=== PATIENT | male | born 1970 | race American Indian/Alaskan Native ===

== ENCOUNTER 2017-01-13 08:41 | Emergency (ER) | payer OTHER ==
[2017-01-13 09:29] LABS: Basophils % (Auto) 0.4 % (0.0-1.8); Eosinophils % (Auto) 4.4 % (0.0-4.3); Hematocrit 44.1 % (35.5-45.6); Hemoglobin 13.8 gm/dl (11.8-15.2); Mean Corpuscular HGB Conc 31 % (32-34); Mean Corpuscular Volume 79 fl (84-94); Platelet Count 163 K/mm3 (140-440); Red Blood Count 5.62 M/mm3 (3.65-5.03); Red Cell Distribution Width 15.9 % (13.2-15.2); White Blood Count 5.5 K/mm3 (4.5-11.0)
[2017-01-13 09:30] LABS: Mean Corpuscular Hemoglobin 25 pg (28-32)
[2017-01-13 09:37] LABS: Anion Gap 19 mmol/L; BUN/Creatinine Ratio 14.54; Blood Urea Nitrogen 16 mg/dL (9-20); Calcium 9.3 mg/dL (8.4-10.2); Carbon Dioxide 22 mmol/L (22-30); Chloride 105.8 mmol/L (98-107); Glucose 124 mg/dL (75-100); Potassium 4.3 mmol/L (3.6-5.0); Sodium 142 mmol/L (137-145)
[2017-01-13] MEDS ORDERED: TORADOL IV ONE (15:25)
[2017-01-13] MEDS ORDERED: TYLENOL PO ONE (15:25)
[2017-01-13] MEDS ORDERED: VALIUM IV ONE (15:25)
--- NOTE | 2017-01-13 15:26 | Emergency Department Report ---
ED General Adult HPI - General Chief complaint: Chest Pain Stated complaint: CHEST PAIN/BOTH LEGS NUMB/PAIN Time Seen by Provider: 01/13/17 15:14 Source: patient, RN notes reviewed Mode of arrival: Ambulatory Limitations: No Limitations - History of Present Illness Initial comments: This is a 46-year-old male. He is previously unknown to me. He does not have a primary care doctor. He has no chronic medical conditions. The patient works as a cook and a painter bottom. The patient presents to the emergency department with 2 complaints. The patient's first complaint is chest pain. The chest pain is left-sided and described as tightness. It does not radiate to the back, arms and neck. To me he denies shortness of breath, nausea, vomiting, diaphoresis. There is no leg pain. There is no leg swelling. No recent trips greater than 4 hours. No recent hospital admissions. The patient does describe repetitive range of motion with his hands secondary to painting. The patient says complaint is back pain. The back pain is paralumbar. It radiates down the right lower extremity to the posterior knee. The pain is achy and sharp. There is no bladder or bowel retention or incontinence. There is no shortness of breath. There is no saddle anesthesia. Patient denies fever greater than 100.4. He denies irritative and obstructive urinary symptoms. He denies IV drug use. There is no abdominal pain. -: Gradual Location: chest, back, right, lower extremity Quality: aching Consistency: intermittent Improves with: rest Worsens with: movement Associated Symptoms: chest pain. denies: confusion, headaches, loss of appetite , malaise, nausea/vomiting, shortness of breath, syncope, weakness - Related Data Home Medications Medication Instructions Recorded Confirmed Last Taken Acetaminophen [Tylenol] 650 mg PO Q6HR PRN 01/13/17 01/13/17 01/12/17 Ibuprofen [Motrin] 800 mg PO Q8HR PRN 01/13/17 01/13/17 01/13/17 Previous Rx's Medication Instructions Recorded Last Taken Type Ketorolac [Toradol] 10 mg PO Q6H PRN #20 tablet 01/13/17 Unknown Rx Methocarbamol [Robaxin TAB] 750 mg PO TID PRN #30 tab 01/13/17 Unknown Rx Allergies Allergy/AdvReac Type Severity Reaction Status Date / Time No Known Allergies Allergy Unverified 01/13/17 08:52 ED Review of Systems ROS: Stated complaint: CHEST PAIN/BOTH LEGS NUMB/PAIN Other details as noted in HPI Constitutional: denies: fever Eyes: denies: vision change ENT: denies: epistaxis Cardiovascular: chest pain Gastrointestinal: denies: abdominal pain, nausea, diarrhea Genitourinary: denies: urgency, dysuria, testicular pain Musculoskeletal: back pain Skin: denies: lesions Neurological: paresthesias. denies: headache, weakness, abnormal gait Psychiatric: denies: anxiety ED Past Medical Hx - Past Medical History Previous Medical History?: No - Surgical History Past Surgical History?: No - Social History Smoking Status: Current Every Day Smoker Substance Use Type: Alcohol - Medications Home Medications: Home Medications Medication Instructions Recorded Confirmed Last Taken Type Acetaminophen [Tylenol] 650 mg PO Q6HR PRN 01/13/17 01/13/17 01/12/17 History Ibuprofen [Motrin] 800 mg PO Q8HR PRN 01/13/17 01/13/17 01/13/17 History Ketorolac [Toradol] 10 mg PO Q6H PRN #20 tablet 01/13/17 Unknown Rx Methocarbamol [Robaxin TAB] 750 mg PO TID PRN #30 tab 01/13/17 Unknown Rx ED Physical Exam - General Limitations: No Limitations General appearance: alert, in no apparent distress - Head Head exam: Present: atraumatic, normocephalic - Eye Eye exam: Present: normal appearance, EOMI. Absent: nystagmus - ENT ENT exam: Present: normal exam, normal orophraynx, mucous membranes moist, normal external ear exam - Neck Neck exam: Present: normal inspection, full ROM. Absent: tenderness, meningismus - Respiratory Respiratory exam: Present: normal lung sounds bilaterally, chest wall tenderness. Absent: respiratory distress, wheezes, rales, rhonchi, stridor, accessory muscle use, decreased breath sounds, prolonged expiratory - Cardiovascular Cardiovascular Exam: Present: regular rate, normal rhythm, normal heart sounds. Absent: bradycardia, tachycardia, irregular rhythm, systolic murmur, diastolic murmur, rubs, gallop - GI/Abdominal GI/Abdominal exam: Present: soft, normal bowel sounds. Absent: distended, tenderness, guarding, rebound, rigid, pulsatile mass - Rectal Rectal exam: Present: deferred - Extremities Exam Extremities exam: Present: normal inspection, full ROM, normal capillary refill. Absent: tenderness, pedal edema, joint swelling, calf tenderness - Back Exam Back exam: Present: normal inspection, full ROM, tenderness, CVA tenderness (R) , paraspinal tenderness. Absent: vertebral tenderness - Neurological Exam Neurological exam: Present: alert, oriented X3, normal gait, other (Extraocular movements intact. Tongue midline. No facial droop. Facial sensation intact to light touch in the V1, V2, V3 distribution bilaterally. 5 and 5 strength in 4 extremities.. Sensation is intact to light touch in 4 extremities.). Absent : motor sensory deficit (normal gait. Normal tandem gait. Sensation intact to pinprick, proprioception and 4 extremities, downgoing plantar reflexes in the bilateral lower extremity's.) - Psychiatric Psychiatric exam: Present: normal affect, normal mood - Skin Skin exam: Present: warm, dry, intact, normal color. Absent: rash ED Course Vital Signs 01/13/17 01/13/17 01/13/17 08:53 14:52 14:57 Temperature 97.7 F 97.8 F Pulse Rate 90 Respiratory 20 15 Rate Blood Pressure 143/98 Blood Pressure [Left] O2 Sat by Pulse 100 99 Oximetry 01/13/17 01/13/17 01/13/17 15:00 15:10 15:26 Temperature Pulse Rate 80 75 77 Respiratory 14 16 Rate Blood Pressure 144/88 144/88 144/88 Blood Pressure [Left] O2 Sat by Pulse 98 100 Oximetry 01/13/17 01/13/17 01/13/17 15:30 15:40 15:50 Temperature Pulse Rate 78 72 79 Respiratory 15 13 20 Rate Blood Pressure 144/88 144/88 144/88 Blood Pressure [Left] O2 Sat by Pulse 99 99 100 Oximetry 01/13/17 16:00 Temperature 97.9 F Pulse Rate 84 Respiratory 16 Rate Blood Pressure 144/88 Blood Pressure 143/95 [Left] O2 Sat by Pulse 100 Oximetry - Reevaluation(s) Reevaluation #1: 01/13/17 16:05 Differential diagnosis: Lumbar radiculopathy, costochondritis, pneumonia, GERD, reflux, acute coronary syndrome Assessment and plan: 46-year-old male with 2 complaints. He reports that back pain is his main complaint. His history and physical supportive diagnosis of lumbar radiculopathy, he denies a history of fever, denies feeling feverish, and has no bladder or bowel retention or incontinence, does have stable vital signs in the emergency department. His physical examination does not support a diagnosis of epidural compression syndrome, he is equal pulses in 4 extremities without a pulsatile abdominal mass. The patient will be treated symptomatically for his radicular pain, and he can follow up with outpatient neurosurgery/spine for this. The patient's chest pain is clinically atypical, low risk by well's criteria, low risk by LANA score, low risk by heart score, no pulmonary embolus or DVT risk factors, perc negative. Troponin is negative multiple times. EKG abnormal without prior for comparison. Given the constellation of objective evidence, the patient is at low risk for major adverse cardiac event, he denies a family history of heart disease, and he denies cocaine use. Reevaluation #2: 01/13/17 16:40 Troponins negative 3. Pain somewhat improved. Patient given Valium, Toradol, acetaminophen, tramadol. Patient is suitable to follow-up with an outpatient primary care doctor, non garment sewing machine operator specialist, eye specialist. Patient will be discharged at this time. Return precautions were reviewed. ED Medical Decision Making - Lab Data Result diagrams: 01/13/17 09:01 01/13/17 09:01 Vital Signs 01/13/17 01/13/17 01/13/17 08:53 14:52 14:57 Temperature 97.7 F 97.8 F Pulse Rate 90 Respiratory 20 15 Rate Blood Pressure 143/98 O2 Sat by Pulse 100 99 Oximetry 01/13/17 01/13/17 01/13/17 15:00 15:10 15:26 Temperature Pulse Rate 80 75 77 Respiratory 14 12 Rate Blood Pressure 144/88 144/88 144/88 O2 Sat by Pulse 98 99 Oximetry Lab Results 01/13/17 01/13/17 01/13/17 Range/Units 09:01 09:01 11:52 WBC 5.5 (4.5-11.0) K/mm3 RBC 5.62 H (3.65-5.03) M/mm3 Hgb 13.8 (11.8-15.2) gm/dl Hct 44.1 (35.5-45.6) % MCV 79 L (84-94) fl MCH 25 L (28-32) pg MCHC 31 L (32-34) % RDW 15.9 H (13.2-15.2) % Plt Count 163 (140-440) K/mm3 Lymph % (Auto) 37.8 H (13.4-35.0) % Spencer % (Auto) 10.8 H (0.0-7.3) % Eos % (Auto) 4.4 H (0.0-4.3) % Baso % (Auto) 0.4 (0.0-1.8) % Lymph # 2.1 (1.2-5.4) K/mm3 Spencer # 0.6 (0.0-0.8) K/mm3 Eos # 0.2 (0.0-0.4) K/mm3 Baso # 0.0 (0.0-0.1) K/mm3 Seg Neutrophils % 46.6 (40.0-70.0) % Seg Neutrophils # 2.6 (1.8-7.7) K/mm3 Sodium 142 (137-145) mmol/L Potassium 4.3 (3.6-5.0) mmol/L Chloride 105.8 (98-107) mmol/L Carbon Dioxide 22 (22-30) mmol/L Anion Gap 19 mmol/L BUN 16 (9-20) mg/dL Creatinine 1.1 (0.8-1.5) mg/dL Estimated GFR > 60 ml/min BUN/Creatinine Ratio 14.54 % Glucose 124 H (75-100) mg/dL Calcium 9.3 (8.4-10.2) mg/dL Troponin T < 0.010 < 0.010 (0.00-0.029) ng/mL 01/13/17 Range/Units 15:06 WBC (4.5-11.0) K/mm3 RBC (3.65-5.03) M/mm3 Hgb (11.8-15.2) gm/dl Hct (35.5-45.6) % MCV (84-94) fl MCH (28-32) pg MCHC (32-34) % RDW (13.2-15.2) % Plt Count (140-440) K/mm3 Lymph % (Auto) (13.4-35.0) % Spencer % (Auto) (0.0-7.3) % Eos % (Auto) (0.0-4.3) % Baso % (Auto) (0.0-1.8) % Lymph # (1.2-5.4) K/mm3 Spencer # (0.0-0.8) K/mm3 Eos # (0.0-0.4) K/mm3 Baso # (0.0-0.1) K/mm3 Seg Neutrophils % (40.0-70.0) % Seg Neutrophils # (1.8-7.7) K/mm3 Sodium (137-145) mmol/L Potassium (3.6-5.0) mmol/L Chloride (98-107) mmol/L Carbon Dioxide (22-30) mmol/L Anion Gap mmol/L BUN (9-20) mg/dL Creatinine (0.8-1.5) mg/dL Estimated GFR ml/min BUN/Creatinine Ratio % Glucose (75-100) mg/dL Calcium (8.4-10.2) mg/dL Troponin T < 0.010 (0.00-0.029) ng/mL - EKG Data When compared to previous EKG there are: previous EKG unavailable 01/13/17 16:07 EKG #1 demonstrates normal sinus, 90 beats per minute, normal intervals, normal axis, not consistent with STEMI, no prio for comparison Q waves noted in the inferior leads. EKG #2 demonstrates normal sinus, 71 bpm, normal intervals, normal axis, Q waves noted in the inferior leads, not morphologically consistent with STEMI. - Radiology Data Radiology results: image reviewed Critical care attestation.: If time is entered above; I have spent that time in minutes in the direct care of this critically ill patient, excluding procedure time. ED Disposition Clinical Impression: Chest pain, Back pain Disposition: DISCHARGED TO HOME OR SELFCARE Is pt being admited?: No Does the pt Need Aspirin: No Condition: Stable Instructions: Chest Pain (ED), Costochondritis (ED), Lumbar Radiculopathy (ED) Additional Instructions: Rest and avoid heavy lifting. Avoid strenuous physical activity. Follow-up with either Dr. Aguirre or Dr. Cabezas within the next 3-5 days for further evaluation and management of your chest pain. These physicians are local day habilitation specialist. Follow-up with the listed spine surgeon, Dr. Jeffers within the next week to 2 weeks. Return to the ER right away with new pain, worsened pain, migration of pain, fevers or chills, intractable nausea or vomiting, inability to tolerate liquid feeds, extremity weakness, bladder or bowel retention or incontinence. Prescriptions: Ketorolac [Toradol] 10 mg PO Q6H PRN #20 tablet PRN Reason: Pain Methocarbamol [Robaxin TAB] 750 mg PO TID PRN #30 tab PRN Reason: Pain Referrals: PRIMARY CARE, [Primary Care Provider] - 3-5 Days VALERIE JEFFERS MD [Staff Physician] - 3-5 Days JAVI SALES MD [Staff Physician] - 3-5 Days BRITTNY AGUIRRE MD [Staff Physician] - 3-5 Days Forms: Work/School Release Form(ED)
[2017-01-13] MEDS ORDERED: ULTRAM ONE (16:33)
--- NOTE | 2017-01-13 16:56 | XRay Report ---
CHEST 2 VIEWS INDICATION: Chest pain. COMPARISON: None similar at this institution. FINDINGS: PA and lateral chest radiographs demonstrate normal cardiomediastinal silhouette. Clear lungs. Mild thoracic spine degenerative spurring. EKG leads. CONCLUSION: No acute disease in the chest. Thank you for the opportunity to participate in this patient's care.
[2017-01-13 17:34] VITALS: BP 143/95
== END 2017-01-13 17:20 | disposition home or self-care (01) ==
LOC: ED 08:41
DX: R07.89 Other chest pain (principal); M54.5 Low back pain; F17.200 Nicotine dependence, unspecified, uncomplicated
CPT/HCPCS: 36415; 71020; 80048; 84484; 85025; 93005; 93010; 96374; 96375; 99285; J1885; J3360

== ENCOUNTER 2017-12-14 20:27 | Emergency (ER) | payer SELFPAY ==
[2017-12-14 22:35] VITALS: BP 162/109
[2017-12-15] MEDS ORDERED: TORADOL IM ONE (05:05)
--- NOTE | 2017-12-15 05:09 | Emergency Department Report ---
ED Back Pain/Injury HPI - General Chief Complaint: Back Pain/Injury Stated Complaint: BACK PAIN Time Seen by Provider: 12/15/17 05:04 Source: patient Limitations: No Limitations - History of Present Illness Initial Comments: 47-year-old -[place] male comes to the emergency room complaining of lower back pain for 1 month. Patient reports that he was seen at another hospital about a month ago was given a prescription for pain medicine and Robaxin. He reports that pain continues. He reports he did not follow-up as he was told to because he lost his paperwork. 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 He denies any trauma no falls. She denies any urinary or bowel incontinence. Denies any dysuria. Reports a past medical history of asthma currently takes no medication and has no known drug allergies. MD Complaint: back pain -: month(s) (1) Similar Symptoms Previously: Yes Radiation: none Severity: severe Severity scale (0 -10): 8 Quality: burning, aching Consistency: constant Improves With: none Worsens With: walking Associated Symptoms: denies other symptoms - Related Data Home Medications Medication Instructions Recorded Confirmed Last Taken Acetaminophen [Tylenol] 650 mg PO Q6HR PRN 01/13/17 01/13/17 01/12/17 Ibuprofen [Motrin] 800 mg PO Q8HR PRN 01/13/17 01/13/17 01/13/17 Previous Rx's Medication Instructions Recorded Last Taken Type Ketorolac [Toradol] 10 mg PO Q6H PRN #20 tablet 01/13/17 Unknown Rx Methocarbamol [Robaxin TAB] 750 mg PO TID PRN #30 tab 01/13/17 Unknown Rx Cyclobenzaprine [Flexeril] 10 mg PO TID PRN #15 tablet 12/15/17 Unknown Rx Naproxen [Naprosyn] 500 mg PO BID #30 tablet 12/15/17 Unknown Rx Allergies Allergy/AdvReac Type Severity Reaction Status Date / Time No Known Allergies Allergy Unverified 01/13/17 08:52 ED Review of Systems ROS: Stated complaint: BACK PAIN Other details as noted in HPI Constitutional: denies: chills, fever Eyes: denies: eye pain, eye discharge, vision change ENT: denies: ear pain, throat pain Respiratory: denies: cough, shortness of breath, wheezing Cardiovascular: denies: chest pain, palpitations Endocrine: no symptoms reported Gastrointestinal: denies: abdominal pain, nausea, diarrhea Genitourinary: denies: urgency, dysuria Musculoskeletal: back pain Skin: denies: rash, lesions Neurological: denies: headache, weakness, paresthesias Psychiatric: denies: anxiety, depression Hematological/Lymphatic: denies: easy bleeding, easy bruising ED Past Medical Hx - Past Medical History Previous Medical History?: Yes Hx Asthma: Yes - Surgical History Past Surgical History?: No - Social History Smoking Status: Never Smoker Substance Use Type: None - Medications Home Medications: Home Medications Medication Instructions Recorded Confirmed Last Taken Type Acetaminophen [Tylenol] 650 mg PO Q6HR PRN 01/13/17 01/13/17 01/12/17 History Ibuprofen [Motrin] 800 mg PO Q8HR PRN 01/13/17 01/13/17 01/13/17 History Ketorolac [Toradol] 10 mg PO Q6H PRN #20 tablet 01/13/17 Unknown Rx Methocarbamol [Robaxin TAB] 750 mg PO TID PRN #30 tab 01/13/17 Unknown Rx Cyclobenzaprine [Flexeril] 10 mg PO TID PRN #15 tablet 12/15/17 Unknown Rx Naproxen [Naprosyn] 500 mg PO BID #30 tablet 12/15/17 Unknown Rx ED Physical Exam - General Limitations: No Limitations General appearance: alert, in no apparent distress - Head Head exam: Present: atraumatic, normocephalic - Eye Eye exam: Present: normal appearance - ENT ENT exam: Present: mucous membranes moist - Neck Neck exam: Present: normal inspection - Respiratory Respiratory exam: Present: normal lung sounds bilaterally. Absent: respiratory distress - Cardiovascular Cardiovascular Exam: Present: regular rate, normal rhythm. Absent: systolic murmur, diastolic murmur, rubs, gallop - GI/Abdominal GI/Abdominal exam: Present: soft, normal bowel sounds - Rectal Rectal exam: Present: deferred - Extremities Exam Extremities exam: Present: normal inspection - Back Exam Back exam: Present: full ROM, tenderness, muscle spasm (left lumbar), paraspinal tenderness. Absent: CVA tenderness (R), vertebral tenderness, rash noted - Neurological Exam Neurological exam: Present: alert, oriented X3 - Psychiatric Psychiatric exam: Present: normal affect, normal mood - Skin Skin exam: Present: warm, dry, intact, normal color. Absent: rash ED Course Vital Signs 12/14/17 22:32 Temperature 97.8 F Pulse Rate 92 H Respiratory 18 Rate Blood Pressure 162/109 O2 Sat by Pulse 99 Oximetry ED Medical Decision Making - Medical Decision Making Patient has been evaluated by this provider fast track. Discussed the patient appears he has muscle spasms in the left lumbar region. Discussed the patient we will give him a Toradol injection and discharge him on naproxen and Flexeril. Patient is to follow-up with the back specialist if symptoms persist or gets worse. Critical care attestation.: If time is entered above; I have spent that time in minutes in the direct care of this critically ill patient, excluding procedure time. ED Disposition Clinical Impression: Muscle spasm of back Lumbago without sciatica Qualifiers: Chronicity: unspecified Back pain laterality: left Qualified Code(s): M54.5 - Low back pain Disposition: - TO HOME OR SELFCARE Is pt being admited?: No Does the pt Need Aspirin: No Condition: Stable Instructions: Muscle Spasm (ED), Back Pain (ED) Additional Instructions: Please is take pain medication as prescribed. Please take muscle relaxants as prescribed. Please follow-up with orthopedist source back specialist if symptoms persist or gets worse Prescriptions: Cyclobenzaprine [Flexeril] 10 mg PO TID PRN #15 tablet PRN Reason: Muscle Spasm Naproxen [Naprosyn] 500 mg PO BID #30 tablet Referrals: PRIMARY CARE, [Primary Care Provider] - 3-5 Days [facility] [Provider Group] - 3-5 Days
== END 2017-12-15 05:33 | disposition home or self-care (01) ==
LOC: ED 20:27
DX: M54.5 Low back pain (principal); M62.830 Muscle spasm of back; J45.909 Unspecified asthma, uncomplicated
CPT/HCPCS: 96372; 99282; J1885

== ENCOUNTER 2018-06-29 15:52 | Emergency (ER) | payer SELFPAY ==
[2018-06-29 16:06] VITALS: BP 132/80
[2018-06-29] MEDS ORDERED: TORADOL IM ONE (19:48)
[2018-06-29] MEDS ORDERED: DELTASONE PO ONE (19:48)
--- NOTE | 2018-06-29 19:52 | Emergency Department Report ---
ED Back Pain/Injury HPI - General Chief Complaint: Back Pain/Injury Stated Complaint: RT SIDE PAIN Time Seen by Provider: 06/29/18 18:25 Source: patient Limitations: No Limitations - History of Present Illness Initial Comments: This is a 47-year-old male nontoxic, well nourished in appearance, no acute signs of distress presents to the ED with c/o of acute on chronic lower back pain. 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 Patient states has history of sciatica nerve pain which is similar symptoms as today. Patient states that pain radiates through to his right lower extremity. Patient denies any trauma. Denies any bladder or bowel instability. Patient denies any urinary symptoms. Denies any fever, chills, nausea, vomiting, headache, stiff neck, chest pain or shortness of breath. Patient denies any numbness or tingling. Denies any allergies. Denies significant past medical history. MD Complaint: back pain -: days(s) (2) Similar Symptoms Previously: Yes Place: work Radiation: right leg Severity: mild Severity scale (0 -10): 8 Quality: aching Consistency: constant Improves With: immobilization, sitting upright Worsens With: movement, walking Associated Symptoms: denies other symptoms. denies: confusion, weakness, chest pain, numbness, difficulty walking, cough, difficulty urinating, diaphoresis, incontinence, fever/chills, constipation, headaches, abdominal pain, loss of appetite, malaise, nausea/vomiting, rash, seizure, shortness of breath, syncope - Related Data Home Medications Medication Instructions Recorded Confirmed Last Taken Acetaminophen [Tylenol] 650 mg PO Q6HR PRN 01/13/17 01/13/17 01/12/17 Ibuprofen [Motrin] 800 mg PO Q8HR PRN 01/13/17 01/13/17 01/13/17 Previous Rx's Medication Instructions Recorded Last Taken Type Ketorolac [Toradol] 10 mg PO Q6H PRN #20 tablet 01/13/17 Unknown Rx Methocarbamol [Robaxin TAB] 750 mg PO TID PRN #30 tab 01/13/17 Unknown Rx Cyclobenzaprine [Flexeril] 10 mg PO TID PRN #15 tablet 12/15/17 Unknown Rx Naproxen [Naprosyn] 500 mg PO BID #30 tablet 12/15/17 Unknown Rx Cyclobenzaprine [Flexeril] 10 mg PO QHS PRN #10 tablet 06/29/18 Unknown Rx Ibuprofen [Motrin] 600 mg PO Q8H PRN #20 tablet 06/29/18 Unknown Rx Allergies Allergy/AdvReac Type Severity Reaction Status Date / Time No Known Allergies Allergy Verified 06/29/18 16:02 ED Review of Systems ROS: Stated complaint: RT SIDE PAIN Other details as noted in HPI Constitutional: denies: chills, fever Eyes: denies: eye pain, eye discharge, vision change ENT: denies: ear pain, throat pain Respiratory: denies: cough, shortness of breath, wheezing Cardiovascular: denies: chest pain, palpitations Endocrine: no symptoms reported Gastrointestinal: denies: abdominal pain, nausea, diarrhea Genitourinary: denies: urgency, dysuria Musculoskeletal: denies: back pain, joint swelling, arthralgia Skin: denies: rash, lesions Neurological: denies: headache, weakness, paresthesias Psychiatric: denies: anxiety, depression Hematological/Lymphatic: denies: easy bleeding, easy bruising ED Past Medical Hx - Past Medical History Hx Asthma: Yes - Surgical History Past Surgical History?: No - Social History Smoking Status: Current Every Day Smoker Substance Use Type: Alcohol - Medications Home Medications: Home Medications Medication Instructions Recorded Confirmed Last Taken Type Acetaminophen [Tylenol] 650 mg PO Q6HR PRN 01/13/17 01/13/17 01/12/17 History Ibuprofen [Motrin] 800 mg PO Q8HR PRN 01/13/17 01/13/17 01/13/17 History Ketorolac [Toradol] 10 mg PO Q6H PRN #20 tablet 01/13/17 Unknown Rx Methocarbamol [Robaxin TAB] 750 mg PO TID PRN #30 tab 01/13/17 Unknown Rx Cyclobenzaprine [Flexeril] 10 mg PO TID PRN #15 tablet 12/15/17 Unknown Rx Naproxen [Naprosyn] 500 mg PO BID #30 tablet 12/15/17 Unknown Rx Cyclobenzaprine [Flexeril] 10 mg PO QHS PRN #10 tablet 06/29/18 Unknown Rx Ibuprofen [Motrin] 600 mg PO Q8H PRN #20 tablet 06/29/18 Unknown Rx ED Physical Exam - General Limitations: No Limitations General appearance: alert, in no apparent distress - Head Head exam: Present: atraumatic, normocephalic - Eye Eye exam: Present: normal appearance Pupils: Present: normal accommodation - ENT ENT exam: Present: normal exam, mucous membranes moist - Neck Neck exam: Present: normal inspection, full ROM. Absent: tenderness, meningismus, lymphadenopathy - Respiratory Respiratory exam: Present: normal lung sounds bilaterally. Absent: respiratory distress, wheezes, rales, rhonchi, stridor, chest wall tenderness, accessory muscle use, decreased breath sounds, prolonged expiratory - Cardiovascular Cardiovascular Exam: Present: regular rate, normal rhythm, normal heart sounds. Absent: bradycardia, tachycardia, irregular rhythm, systolic murmur, diastolic murmur, rubs, gallop - GI/Abdominal GI/Abdominal exam: Present: soft, normal bowel sounds. Absent: distended, tenderness, guarding, rebound, rigid, diminished bowel sounds - Rectal Rectal exam: Present: deferred - Extremities Exam Extremities exam: Present: normal inspection, full ROM, normal capillary refill. Absent: tenderness - Back Exam Back exam: Present: normal inspection, full ROM, paraspinal tenderness (right sided lumbar paraspinal). Absent: tenderness, CVA tenderness (R), CVA tenderness (L), muscle spasm, vertebral tenderness, rash noted - Expanded Back Exam Expanded Back exam: Absent: saddle anesthesia Back exam: Negative Straight Leg Raising: Left, Right - Neurological Exam Neurological exam: Present: alert, oriented X3, normal gait - Psychiatric Psychiatric exam: Present: normal affect, normal mood - Skin Skin exam: Present: warm, dry, intact, normal color. Absent: rash ED Course Vital Signs 06/29/18 16:03 Temperature 98.3 F Pulse Rate 86 Respiratory 16 Rate Blood Pressure 132/80 O2 Sat by Pulse 100 Oximetry - Reevaluation(s) Reevaluation #1: 06/29/18 19:51 Patient is speaking in full sentences with no signs of distress noted. ED Medical Decision Making - Medical Decision Making This is a 47-year-old male that presents with low back strain. Patient is stable was examined by me. There is no spinal tenderness. There is no cauda equina syndrome during examination. No bladder or bowel instability. Patient received Toradol 60 mg IM and prednisone in the ED which stated that his symptoms has resolved and subsided. Patient is discharged with muscle relaxant and Motrin. Patient was instructed not to operate any machinery while taking muscle relaxant as they cause her drowsiness. Patient was referred to Follow- up with a primary care doctor in 3-5 days or if symptoms worsen and continue return to emergency room as soon as possible. At time of discharge, the patient does not seem toxic or ill in appearance. No acute signs of distress noted. Patient agrees to discharge treatment plan of care. No further questions noted by the patient. This chart is dictated with using [employer] Dictation Program Critical care attestation.: If time is entered above; I have spent that time in minutes in the direct care of this critically ill patient, excluding procedure time. ED Disposition Clinical Impression: Low back strain Qualifiers: Encounter type: initial encounter Qualified Code(s): S39.012A - Strain of muscle, fascia and tendon of lower back, initial encounter Disposition: TO HOME OR SELFCARE Is pt being admited?: No Does the pt Need Aspirin: No Condition: Stable Instructions: Low Back Strain (ED), Cyclobenzaprine (By mouth) Additional Instructions: Follow-up with your primary care doctor in 3-5 days or if symptoms worsen such as bladder or bowel stability, chest pain, short of breath, numbness or tingling sensation in extremities, headache, dizziness, visual changes, nausea vomiting, or abdominal pain, return back to emergency room as was possible. Take ibuprofen and Flexeril as prescribed. Do not operate heavy machinery while taking Flexeril due to sedation Prescriptions: Cyclobenzaprine [Flexeril] 10 mg PO QHS PRN #10 tablet PRN Reason: Muscle Spasm Ibuprofen [Motrin] 600 mg PO Q8H PRN #20 tablet PRN Reason: Pain Referrals: PRIMARY CAREMD [Primary Care Provider] - 3-5 Days NILAM HOUSE MD [Staff Physician] - 3-5 Days [facility] [Outside] - 3-5 Days [facility] [Outside] - 3-5 Days Forms: Work/School Release Form(ED)
== END 2018-06-29 20:45 | disposition home or self-care (01) ==
LOC: ED 15:52
DX: S39.012A Strain of muscle, fascia and tendon of lower back, initial encounter (principal); J45.909 Unspecified asthma, uncomplicated; F17.200 Nicotine dependence, unspecified, uncomplicated; X50.1XXA Overexertion from prolonged static or awkward postures, initial encounter; Y93.G3 Activity, cooking and baking; Y92.69 Other specified industrial and construction area as the place of occurrence of the external cause; Y99.8 Other external cause status
CPT/HCPCS: 96372; 99282; J1885; J7512

== ENCOUNTER 2019-02-12 11:30 | Emergency (ER) | payer SELFPAY ==
[2019-02-12 11:37] VITALS: BP 121/93
[2019-02-12] MEDS ORDERED: ZOFRAN ONE (11:54)
[2019-02-12] MEDS ORDERED: MORPHINE ONE (11:59)
[2019-02-12] MEDS ORDERED: TORADOL IV ONE (12:04)
[2019-02-12] MEDS ORDERED: DECADRON IV ONE (12:04)
[2019-02-12] MEDS ORDERED: MORPHINE IV ONE ×2 (12:04→13:03)
[2019-02-12] MEDS ORDERED: NORCO 5/325 PO ONE (12:05)
[2019-02-12] MEDS ORDERED: ZOFRAN IV ONE (12:05)
--- NOTE | 2019-02-12 12:09 | Emergency Department Report ---
ED Back Pain/Injury HPI - General Chief Complaint: Back Pain/Injury Stated Complaint: BACK PAIN EXTREME/PAIN Time Seen by Provider: 02/12/19 12:04 Source: patient Limitations: No Limitations - History of Present Illness Initial Comments: Mr. Shelton is a 48-year-old male with history of chronic back pain. Over the last several days the pain has become severe. Central back pain radiating to his right leg. 06/21. Worse with back extension and flexion. No improvement with home ibuprofen. MD Complaint: back pain -: Gradual, days(s) (3) Similar Symptoms Previously: Yes Place: home, work Severity: severe Severity scale (0 -10): 10 Quality: sharp, dull Consistency: constant Worsens With: movement Context: while lifting, turning/twisting, bending - Related Data Home Medications Medication Instructions Recorded Confirmed Last Taken Acetaminophen [Tylenol] 650 mg PO Q6HR PRN 01/13/17 01/13/17 01/12/17 Ibuprofen [Motrin] 800 mg PO Q8HR PRN 01/13/17 01/13/17 01/13/17 Previous Rx's Medication Instructions Recorded Last Taken Type Ketorolac [Toradol] 10 mg PO Q6H PRN #20 tablet 01/13/17 Unknown Rx methOCARBAMOL [Robaxin TAB] 750 mg PO TID PRN #30 tab 01/13/17 Unknown Rx Cyclobenzaprine [Flexeril] 10 mg PO TID PRN #15 tablet 12/15/17 Unknown Rx Naproxen [Naprosyn] 500 mg PO BID #30 tablet 12/15/17 Unknown Rx Cyclobenzaprine [Flexeril] 10 mg PO QHS PRN #10 tablet 06/29/18 Unknown Rx Ibuprofen [Motrin] 600 mg PO Q8H PRN #20 tablet 06/29/18 Unknown Rx Cyclobenzaprine [Flexeril] 10 mg PO TID PRN #20 tablet 02/12/19 Unknown Rx HYDROcodone/APAP 5-325 [[place] 1 each PO Q6HR PRN #10 tablet 02/12/19 Unknown Rx 5/325] Ibuprofen [Motrin 800 MG tab] 800 mg PO TID 5 Days #15 tablet 02/12/19 Unknown Rx Allergies Allergy/AdvReac Type Severity Reaction Status Date / Time No Known Allergies Allergy Verified 06/03/19 11:35 ED Review of Systems ROS: Stated complaint: BACK PAIN EXTREME/PAIN Other details as noted in HPI Comment: All other systems reviewed and negative Constitutional: denies: fever, malaise Respiratory: denies: cough Cardiovascular: denies: chest pain Neurological: denies: numbness, paresthesias ED Past Medical Hx - Past Medical History Previous Medical History?: Yes Hx Asthma: Yes - Surgical History Past Surgical History?: No - Social History Smoking Status: Current Every Day Smoker Substance Use Type: Alcohol - Medications Home Medications: Home Medications Medication Instructions Recorded Confirmed Last Taken Type Acetaminophen [Tylenol] 650 mg PO Q6HR PRN 01/13/17 01/13/17 01/12/17 History Ibuprofen [Motrin] 800 mg PO Q8HR PRN 01/13/17 01/13/17 01/13/17 History Ketorolac [Toradol] 10 mg PO Q6H PRN #20 tablet 01/13/17 Unknown Rx methOCARBAMOL [Robaxin TAB] 750 mg PO TID PRN #30 tab 01/13/17 Unknown Rx Cyclobenzaprine [Flexeril] 10 mg PO TID PRN #15 tablet 12/15/17 Unknown Rx Naproxen [Naprosyn] 500 mg PO BID #30 tablet 12/15/17 Unknown Rx Cyclobenzaprine [Flexeril] 10 mg PO QHS PRN #10 tablet 06/29/18 Unknown Rx Ibuprofen [Motrin] 600 mg PO Q8H PRN #20 tablet 06/29/18 Unknown Rx Cyclobenzaprine [Flexeril] 10 mg PO TID PRN #20 tablet 02/12/19 Unknown Rx HYDROcodone/APAP 5-325 [[place] 1 each PO Q6HR PRN #10 tablet 02/12/19 Unknown Rx 5/325] Ibuprofen [Motrin 800 MG tab] 800 mg PO TID 5 Days #15 tablet 02/12/19 Unknown Rx ED Physical Exam - General Limitations: No Limitations General appearance: alert, in no apparent distress, other (appears in severe pain laying on his left side) - Head Head exam: Present: atraumatic, normocephalic - Eye Eye exam: Present: normal appearance - ENT ENT exam: Present: mucous membranes moist - Neck Neck exam: Present: normal inspection, full ROM - Respiratory Respiratory exam: Present: normal lung sounds bilaterally. Absent: respiratory distress, wheezes, rales, rhonchi - Cardiovascular Cardiovascular Exam: Present: regular rate, normal rhythm, normal heart sounds. Absent: systolic murmur, diastolic murmur, rubs, gallop - GI/Abdominal GI/Abdominal exam: Present: soft, normal bowel sounds. Absent: distended, tenderness, guarding - Rectal Rectal exam: Present: deferred - Extremities Exam Extremities exam: Present: normal inspection - Back Exam Back exam: Present: muscle spasm, paraspinal tenderness. Absent: CVA tenderness (R), CVA tenderness (L), vertebral tenderness - Neurological Exam Neurological exam: Present: alert, oriented X3, normal gait - Psychiatric Psychiatric exam: Present: normal affect, normal mood - Skin Skin exam: Present: warm, dry, intact, normal color. Absent: rash ED Course Vital Signs 02/12/19 11:35 Temperature 97.9 F Pulse Rate 88 Respiratory 20 Rate Blood Pressure 121/93 O2 Sat by Pulse 98 Oximetry ED Medical Decision Making - Medical Decision Making Mr. Shelton presents with acute on chronic back pain. Suspect degenerative disc disease, lumbar radiculopathy with sciatica symptoms. Neurologically intact. rx: norco, ibuprofen, flexeril Critical care attestation.: If time is entered above; I have spent that time in minutes in the direct care of this critically ill patient, excluding procedure time. ED Disposition Clinical Impression: Acute back pain, Sciatica Disposition: DC-01 TO HOME OR SELFCARE Is pt being admited?: No Does the pt Need Aspirin: No Condition: Stable Instructions: Lumbar Radiculopathy (ED), Acute Low Back Pain (ED) Prescriptions: Cyclobenzaprine [Flexeril] 10 mg PO TID PRN #20 tablet PRN Reason: Muscle Spasm Ibuprofen [Motrin 800 MG tab] 800 mg PO TID 5 Days #15 tablet HYDROcodone/APAP 5-325 [[place] 5/325] 1 each PO Q6HR PRN #10 tablet PRN Reason: Pain Referrals: [facility] [Outside] - 3-5 Days Forms: Work/School Release Form(ED)
== END 2019-02-12 14:01 | disposition home or self-care (01) ==
LOC: ED 11:30
DX: M54.30 Sciatica, unspecified side (principal); G89.29 Other chronic pain; M54.9 Dorsalgia, unspecified; F17.200 Nicotine dependence, unspecified, uncomplicated; J45.909 Unspecified asthma, uncomplicated
CPT/HCPCS: 96374; 96375; 96376; 99283; J1100; J1885; J2270; J2405

== ENCOUNTER 2019-05-30 19:17 | Emergency (ER) | payer SELFPAY ==
[2019-05-30 19:38] VITALS: BP 131/80
--- NOTE | 2019-05-30 19:38 | Emergency Department Report ---
Blank Doc - Documentation Documentation: 48-year-old male that presents with acute on chronic low back pain. Patient a lso stated has right eye pain and redness. Denies any injuries. This initial assessment/diagnostic orders/clinical plan/treatment(s) is/are subject to change based on patient's health status, clinical progression and re- assessment by fellow clinical providers in the ED. Further treatment and workup at subsequent clinical providers discretion. Patient/guardians urged not to elope from the ED as their condition may be serious if not clinically assessed and managed. Initial orders include: 1- Patient sent to [facility] for further evaluation and treatment 2- thompson lamp/[facility]
[2019-05-30] MEDS ORDERED: TETRACAINE 0.5% OU PRN (20:21)
[2019-05-30] MEDS: FUL-GLO OP ONE ×2 (20:28→22:52)
[2019-05-30] MEDS ORDERED: TORADOL IM STA (21:17)
--- NOTE | 2019-05-30 21:28 | Emergency Department Report ---
ED Back Pain/Injury HPI - General Chief Complaint: Back Pain/Injury Stated Complaint: BACK AND EYE PAIN Time Seen by Provider: 05/30/19 19:36 Source: patient Limitations: No Limitations - History of Present Illness Complaint: back pain -: Gradual, year(s) Similar Symptoms Previously: Yes Place: home Radiation: none Severity: mild, moderate Quality: dull, aching, tingling (past occasional tingling to his legs with standing for prolonged period of time) Consistency: constant Improves With: none Worsens With: movement Associated Symptoms: denies: confusion, weakness, numbness, difficulty walking, cough, incontinence, fever/chills, headaches, abdominal pain, loss of appetite, rash, seizure - Related Data Home Medications Medication Instructions Recorded Confirmed Last Taken Acetaminophen [Tylenol] 650 mg PO Q6HR PRN 01/13/17 01/13/17 01/12/17 Ibuprofen [Motrin] 800 mg PO Q8HR PRN 01/13/17 01/13/17 01/13/17 Previous Rx's Medication Instructions Recorded Last Taken Type Ketorolac [Toradol] 10 mg PO Q6H PRN #20 tablet 01/13/17 Unknown Rx methOCARBAMOL [Robaxin TAB] 750 mg PO TID PRN #30 tab 01/13/17 Unknown Rx Cyclobenzaprine [Flexeril] 10 mg PO TID PRN #15 tablet 12/15/17 Unknown Rx Naproxen [Naprosyn] 500 mg PO BID #30 tablet 12/15/17 Unknown Rx Cyclobenzaprine [Flexeril] 10 mg PO QHS PRN #10 tablet 06/29/18 Unknown Rx Ibuprofen [Motrin] 600 mg PO Q8H PRN #20 tablet 06/29/18 Unknown Rx Cyclobenzaprine [Flexeril] 10 mg PO TID PRN #20 tablet 02/12/19 Unknown Rx HYDROcodone/APAP 5-325 [[place] 1 each PO Q6HR PRN #10 tablet 02/12/19 Unknown Rx 5/325] Ibuprofen [Motrin 800 MG tab] 800 mg PO TID 5 Days #15 tablet 02/12/19 Unknown Rx Ketorolac [Toradol] 10 mg PO Q6H PRN #15 tablet 05/30/19 Unknown Rx methOCARBAMOL [Robaxin TAB] 750 mg PO Q8H PRN #14 tablet 05/30/19 Unknown Rx Allergies Allergy/AdvReac Type Severity Reaction Status Date / Time No Known Allergies Allergy Verified 02/12/19 11:35 ED Review of Systems ROS: Stated complaint: BACK AND EYE PAIN Other details as noted in HPI Comment: All other systems reviewed and negative ED Past Medical Hx - Past Medical History Hx Asthma: Yes Additional medical history: chronic back pain - Social History Smoking Status: Current Every Day Smoker Substance Use Type: None - Medications Home Medications: Home Medications Medication Instructions Recorded Confirmed Last Taken Type Acetaminophen [Tylenol] 650 mg PO Q6HR PRN 01/13/17 01/13/17 01/12/17 History Ibuprofen [Motrin] 800 mg PO Q8HR PRN 01/13/17 01/13/17 01/13/17 History Ketorolac [Toradol] 10 mg PO Q6H PRN #20 tablet 01/13/17 Unknown Rx methOCARBAMOL [Robaxin TAB] 750 mg PO TID PRN #30 tab 01/13/17 Unknown Rx Cyclobenzaprine [Flexeril] 10 mg PO TID PRN #15 tablet 12/15/17 Unknown Rx Naproxen [Naprosyn] 500 mg PO BID #30 tablet 12/15/17 Unknown Rx Cyclobenzaprine [Flexeril] 10 mg PO QHS PRN #10 tablet 06/29/18 Unknown Rx Ibuprofen [Motrin] 600 mg PO Q8H PRN #20 tablet 06/29/18 Unknown Rx Cyclobenzaprine [Flexeril] 10 mg PO TID PRN #20 tablet 02/12/19 Unknown Rx HYDROcodone/APAP 5-325 [[place] 1 each PO Q6HR PRN #10 tablet 02/12/19 Unknown Rx 5/325] Ibuprofen [Motrin 800 MG tab] 800 mg PO TID 5 Days #15 tablet 02/12/19 Unknown Rx Ketorolac [Toradol] 10 mg PO Q6H PRN #15 tablet 05/30/19 Unknown Rx methOCARBAMOL [Robaxin TAB] 750 mg PO Q8H PRN #14 tablet 05/30/19 Unknown Rx ED Physical Exam - General Limitations: No Limitations General appearance: alert, in no apparent distress - Head Head exam: Present: atraumatic, normocephalic - Eye Eye exam: Present: normal appearance, PERRL, EOMI Pupils: Present: normal accommodation - ENT ENT exam: Present: normal exam, mucous membranes moist - Neck Neck exam: Present: normal inspection - Respiratory Respiratory exam: Present: normal lung sounds bilaterally. Absent: respiratory distress - Cardiovascular Cardiovascular Exam: Present: regular rate, normal rhythm. Absent: systolic murmur, diastolic murmur, rubs, gallop - GI/Abdominal GI/Abdominal exam: Present: soft, normal bowel sounds - Rectal Rectal exam: Present: deferred - Extremities Exam Extremities exam: Present: normal inspection - Back Exam Back exam: Present: normal inspection, full ROM, tenderness, muscle spasm, paraspinal tenderness, other (negative seated straight leg raise). Absent: CVA tenderness (R), CVA tenderness (L) - Neurological Exam Neurological exam: Present: alert, oriented X3, CN II-XII intact, normal gait - Psychiatric Psychiatric exam: Present: normal affect, normal mood - Skin Skin exam: Present: warm, dry, intact, normal color. Absent: rash ED Course Vital Signs 05/30/19 19:36 Temperature 98.6 F Pulse Rate 96 H Respiratory 18 Rate Blood Pressure 131/80 O2 Sat by Pulse 100 Oximetry ED Medical Decision Making - Medical Decision Making 48-year-old -[place] male, chronic recurrent back pain presents complaining of a flareup that related to any recent injuries or change in character of the pain. He reports pain injection and oral pain medication to alleviate his symptoms. No loss of bowel or bladder, no saddle paresthesia. No loss of strength. Discussed with him the need to follow-up with the manpower development specialist for definitive management, treatment and likely an MRI. She reports an understanding. Critical care attestation.: If time is entered above; I have spent that time in minutes in the direct care of this critically ill patient, excluding procedure time. ED Disposition Clinical Impression: Lumbago Disposition: DC-01 TO HOME OR SELFCARE Is pt being admited?: No Does the pt Need Aspirin: No Condition: Stable Instructions: Back Pain (ED), Chronic Back Pain (ED), Lumbar Radiculopathy (ED), Low Back Strain (ED), Ice Pack Application (ED) Prescriptions: methOCARBAMOL [Robaxin TAB] 750 mg PO Q8H PRN #14 tablet PRN Reason: Pain, Moderate (4-6) Ketorolac [Toradol] 10 mg PO Q6H PRN #15 tablet PRN Reason: Pain Referrals: AUDRA PEGUERO MD [Staff Physician] - 3-5 Days
== END 2019-05-30 22:52 | disposition home or self-care (01) ==
LOC: ED 19:17
DX: G89.29 Other chronic pain (principal); M54.5 Low back pain; J45.909 Unspecified asthma, uncomplicated; F17.200 Nicotine dependence, unspecified, uncomplicated; Z79.899 Other long term (current) drug therapy
CPT/HCPCS: 99283; J1885